=== PATIENT | male | born 1965 | race Caucasian/White ===

== ENCOUNTER 2016-06-24 13:28 | Inpatient (IN) | payer OTHER ==
[~2016-06-24] VITALS: Ht 167.6 cm; Wt 74.8 kg
[~2016-06-24 13:28] MED LIST: ENULOSE 2020 GM/30 M PO; FOLIC ACID1 M1 PO; HYDRODIURIL 2525 MG PO; KEPPRA1000 M1 PO; LISINOPRIL10 MG PO; LOPRESSOR 12.12.5 MG PO; MAG-OX 400400 MG PO; MAGNESIUM OXID400 M1 PO; MOBIC15 MG PO; MULTIVITAMINS1 EAC9 PO; PRILOSEC 20MG C20 MG PO; VITAMIN B1100 MG PO
--- NOTE | 2016-06-24 13:40 | ED PSYCHIATRIC COMPLAINT ---
History of Present Illness General Chief Complaint: Psychiatric Related Complaint Stated Complaint: BIBA FOR PSYCH EVAL Source: patient, EMS, police Exam Limitations: no limitations Vital Signs & Intake/Output Vital Signs & Intake/Output Vital Signs Date Time Temp Pulse Resp B/P Pulse O2 O2 Flow FiO2 Ox Delivery Rate 06/24 1540 106 14 111/68 06/24 1540 98.9 106 16 111/68 100 Room Air 06/24 1409 94 Room Air Room Air 06/24 1350 97.6 120 20 120/69 94 Room Air Allergies Coded Allergies: NO KNOWN ALLERGIES (07/06/15) Reconcile Medications Folic Acid 1 MG TABLET 1 TAB PO DAILY supp (Reported) Levetiracetam (Keppra) 1,000 MG TABLET 1 TAB PO BID SEIZURE (Reported) Lisinopril 10 MG TABLET 1 TAB PO DAILY HTN (Reported) Magnesium Oxide 400 MG TABLET 1 TAB PO Q24 LOW MAGNESIUM Multiple Vitamin (Multivitamins) 1 EACH TABLET 1 TAB PO DAILY NUTRITION Omeprazole 40 MG CAPSULE.DR 1 CAP PO DAILY GERD (Reported) Thiamine (Vitamin B1) 100 MG TAB 100 MG PO DAILY SUUPLEMENT Triage Nurses Notes Reviewed? yes Onset: Abrupt Timing: unknown Severity: moderate, severe Associated Symptoms: confusion, anxiety, paranoia HPI: 50 year old male arrives via EMS with PD and presents for c/o feeling like he is being watched from electrical lines in the [place]. He thought his neighbor was scratching on the window and was found wandering. He hears people also talking to him through the radio. Reports headache from monday through monday. EMS reported he was anxious, confused and sweating. Past History Travel History Traveled to [place] past 21 day No Medical History Any Pertinent Medical History? see below for history Neurological: seizure EENT: NONE Cardiovascular: hypertension Respiratory: NONE Gastrointestinal: NONE Hepatic: NONE Renal: NONE Musculoskeletal: NONE Psychiatric: NONE Endocrine: NONE Blood Disorders: NONE Cancer(s): NONE CLIENT TECHNICAL PROFESSIONAL/Reproductive: NONE History of MRSA: No History of VRE: No History of CDIFF: No Pneumonia Vaccine: 04/14/11 Surgical History Surgical History: UNKNOWN HEAD SURG Psychosocial History Who do you live with Friend Services at Home None What is your primary language Russian Family History Hx Contributory? No Review of Systems Review of Systems Constitutional: Denies: fever. EENTM: Reports: no symptoms. Respiratory: Reports: no symptoms. Cardiovascular: Denies: chest pain. GI: Denies: abdominal pain, vomiting. Genitourinary: Reports: no symptoms. Musculoskeletal: Reports: no symptoms. Skin: Reports: no symptoms. Neurological/Psychological: Reports: anxiety, confusion, emotional problems. Hematologic/Endocrine: Denies: bleeding. Immunologic/Allergic: Reports: no symptoms. All Other Systems: Reviewed and Negative Physical Exam Physical Exam General Appearance: alert, awake, anxious, moderate distress Head: atraumatic Eyes: Bilateral: PERRL, EOMI. Ears, Nose, Throat: normal pharynx, abnormal Typanic (L) Neck: normal inspection, supple, full range of motion Respiratory: normal breath sounds, chest non-tender, no respiratory distress Cardiovascular: tachycardia Gastrointestinal: soft Extremities: normal range of motion Neurological/Psychiatric: awake, alert Appearance/Memory/Insight: appropriate appearance, impaired insight, neat Behavoir/Eye Contact/Speech: normal speech Thoughts/Hallucinations: auditory hallucinations, delusions, paranoid Skin: intact, normal color, warm/dry SAD PERSONS Done? patient not suicidal Progress Differential Diagnosis: alcohol withdrawal, delerium tremens, psychosis, dehydration, BREANN, polysubstance abuse, rhabdomyolysis Plan of Care: Orders Procedure Date/time Status Add-on Test (ER Only) 06/24 1517 Active TROPONIN LEVEL 06/24 1425 Complete MAGNESIUM 06/24 1425 Complete LIPASE 06/24 1425 Complete CREATINE PHOSPHOKINASE 06/24 1425 Complete CIWA 06/24 1420 Active EKG 06/24 1408 Active ETHANOL 06/24 1351 Complete COMPREHENSIVE METABOLIC PANEL 06/24 1351 Complete CBC WITHOUT DIFFERENTIAL 06/24 1351 Complete Continuous Observation Monitor 06/24 1342 Active URINE DRUGS OF ABUSE 06/24 1342 Active ED CRISIS PSYCH CONSULT 06/24 1342 Active Current Medications Sig/Patricia Start time Last Medication Dose Stop Time Status Admin Lorazepam 2 MG ONE ONE 06/24 1645 AC (Ativan) 06/24 1646 Cyanocobalamin/ 1 BAG ONCE ONE 06/24 1545 AC Thiamine/Pyridoxine 06/24 2344 (Vitamin in I.V.) Sodium Chloride 1,000 ML (Normal Saline 0.9%) Magnesium Sulfate 1 GM ONCE ONE 06/24 1545 AC (Mag Sulfate in D5) 06/24 1944 Dextrose/Water 100 ML (D5W) Laboratory Tests 06/24/16 1425: Anion Gap 12, Estimated GFR 43 L, BUN/Creatinine Ratio 20.0, Glucose 97, Calcium 10.1, Magnesium 1.5 L, Total Bilirubin 1.8 H, AST 162 H, ALT 95 H, Alkaline Phosphatase 90, Creatine Kinase 818 H, Troponin I < 0.01, Total Protein 7.8, Albumin 4.6, Globulin 3.2, Albumin/Globulin Ratio 1.4, Lipase 88, CBC w Diff NO MAN DIFF REQ, RBC 3.68 L, MCV 101.8 H, MCH 35.4 H, RDW 14.9 H, MPV 8.6, Gran % 77.7 H, Lymphocytes % 15.9 L, Monocytes % 5.8, Eosinophils % 0.3, Basophils % 0.3, Absolute Granulocytes 5.2, Absolute Lymphocytes 1.1 L, Absolute Monocytes 0.4, Absolute Eosinophils 0, Absolute Basophils 0, PUBS MCHC 34.8, Serum Alcohol < 10.0 06/24/16 1408: Magnesium Cancelled, Lipase Cancelled 06/24/16 1407: Creatine Kinase Cancelled FLUIDS, ATIVAN, CIWA PROTOCOL. CHECK LABS, CK, MG, UTOX, ETOH. 2ND NS BOLUS ORDERED. MAGNESIUM ORDERED. (ACOSTA WATTS,MELLY) Initial ED EKG: sinus tachycardia @ 109 bpm Repeat EKG: changed Rhythm Strip: sinus tachycardia Departure Departure Time of Disposition: 1643 Disposition: STILL A PATIENT Condition: Stable Clinical Impression Primary Impression: DTs (delirium tremens) Secondary Impressions: BREANN (acute kidney injury), Hypomagnesemia, Rhabdomyolysis , Transaminitis Referrals: YOGI MCMAHON MD (PCP/Family) Departure Forms: Customer Survey General Discharge Information Admission Note Spoke With: LIS WATTS,RICHARDSON Documentation of Exam: Documentation of any treatments & extenuating circumstances including Concerns Regarding Discharge (functional status, medication knowledge or non-compliance, living conditions, etc.) that warrant an admission rather than observation: [IV FLUIDS, CIWA PROTOCOL, ATIVAN T] Critical Care Note Critical Care Note Critical Care Time: 75-104 min
[2016-06-24 14:47] LABS: ABSOLUTE BASOPHIL COUNT 0 /CUMM (0.0-0.2); ABSOLUTE EOSINOPHIL COUNT 0 /CUMM (0.0-0.7); ABSOLUTE GRANULOCYTE CT 5.2 /CUMM (1.4-6.5); ABSOLUTE LYMPH COUNT 1.1 /CUMM (1.2-3.4); ABSOLUTE MONOCYTE COUNT 0.4 /CUMM (0.10-0.60); BASOPHIL % 0.3 % (0.0-2.0); EOSINOPHIL % 0.3 % (0-5); GRANULOCYTE % 77.7 % (42.2-75.2); HEMATOCRIT 37.4 % (42-52); MEAN CORPUSCULAR HGB 35.4 PG (27.0-31.0); MEAN CORPUSCULAR HGB CONC 34.8 G/DL (33.0-37.0); MEAN CORPUSCULAR VOLUME 101.8 FL (80.0-94.0); MEAN PLATELET VOLUME 8.6 FL (7.4-10.4); RBC DISTRIBUTION WIDTH 14.9 % (11.5-14.5); RED BLOOD CELL CT 3.68 /CUMM (4.70-6.10); WHITE BLOOD CELL COUNT 6.7 /CUMM (4.8-10.8)
[2016-06-24 14:55] LABS: PLATELET COUNT 57 /CUMM (130-400)
[2016-06-24 15:40] VITALS: BP 111/68
--- NOTE | 2016-06-24 16:56 | History & Physical ---
DEMETRIO WATTS,[facility] 06/24/16 0234: General Information and HPI MD Statement: I have seen and personally examined BRENT WEATHERS and documented this H&P. The patient is a 50 year old M who presented with a patient stated chief complaint of [confusion, hallucination]. Source of Information: patient, old records Exam Limitations: confusion, poor historian, language barrier History of Present Illness: Patient is a poor historian, most of the past medical history was obtained from medical records. 48/M with PMHx of memory impairment 2/2 traumatic brain injury s/p craniotomy in 2008, seizures on levetiracetam (Keppra), DVT/PE s/p IVC filter placement, hx of ETOH abuse, and HTN, who presented via EMS that was escorted by PD because of abnormal and strange behavior. Patient claimed that the people who build his house are spying on him through an instruments they installed inside [place], earlier today they communicated with him, it wasn't clear what they are saying, for which he called the police, according to the patient soon after he called the police these people start to vita him around the building but he does not know why. He denies any suicidal or homicidal ideation. Patient denies any other current complaints. According to him he moved to this house 6 months ago, he lives with a lady but he couldn't recall her name. According to him ,He is currently smoke her one pack daily for the past 6 month however on recurrent state that he was admitted last year and he was then a smoker, he reported drinking one beer occasionally, he denies any current illegal drug abuse. Allergies/Medications Allergies: Coded Allergies: NO KNOWN ALLERGIES (07/06/15) Home Med list Folic Acid 1 MG TABLET 1 MG PO DAILY SUPPLEMENT (Reported) Levetiracetam (Keppra) 1,000 MG TABLET 1 TAB PO BID SEIZURE (Reported) Lisinopril 10 MG TABLET 1 TAB PO DAILY HTN (Reported) Magnesium Oxide 400 MG TABLET 1 TAB PO Q24 LOW MAGNESIUM Multiple Vitamin (Multivitamins) 1 EACH TABLET 1 TAB PO DAILY NUTRITION Omeprazole 40 MG CAPSULE.DR 1 CAP PO DAILY GERD (Reported) Thiamine (Vitamin B1) 100 MG TAB 100 MG PO DAILY SUUPLEMENT Past History Travel History Traveled to [place] past 21 day No Medical History Neurological: seizure, ?BRAIN INJURY EENT: NONE Cardiovascular: hypertension Respiratory: NONE Gastrointestinal: NONE Hepatic: NONE Renal: NONE Musculoskeletal: NONE Psychiatric: NONE Endocrine: NONE Blood Disorders: NONE Cancer(s): NONE POT FLUXER/Reproductive: NONE History of MRSA: No History of VRE: No History of CDIFF: No Isolation History: Standard Surgical History Surgical History: post traumatic craniotomy Past Family/Social History Psychosocial History Who Do You Live With? self Services at Home: None ETOH Use: occasional use Illicit Drug Use: denies illicit drug use Functional Ability ADLs Independent: dressing, eating, toileting, bathing. Ambulation: independent IADLs Independent: shopping, housework, finances, food prep, telephone, medication admin. Needs Assist: transportation. Review of Systems Review of Systems Constitutional: Reports: see HPI. Denies: chills, fever. Cardiovascular: Denies: chest pain, palpitations. Respiratory: Denies: short of breath. Comments Review of systems is not accurate given the patient's current confusion and altered mental status Exam & Diagnostic Data Last 24 Hrs of Vital Signs/I&O Vital Signs Date Time Temp Pulse Resp B/P Pulse O2 O2 Flow FiO2 Ox Delivery Rate 06/24 1845 98.9 106 18 112/74 100 Room Air 06/24 1747 98.6 100 18 109/79 06/24 1737 97.8 104 18 114/72 98 Room Air 06/24 1540 106 14 111/68 06/24 1540 98.9 106 16 111/68 100 Room Air 06/24 1409 94 Room Air Room Air 06/24 1350 97.6 120 20 120/69 94 Room Air Intake & Output 06/24 1600 06/24 0800 06/24 0000 Intake Total 1000 Output Total Balance 1000 Intake, IV 1000 Patient 74.843 kg Weight Physical Exam General Appearance Alert, Oriented X3, No Acute Distress Skin No Rashes HEENT Atraumatic, EOMI, Mucous Membr. moist/pink, pupils dialted and not reactive to lights Cardiovascular Regular Rate, Normal S1, Normal S2, No Murmurs Lungs Clear to Auscultation, Normal Air Movement Abdomen Normal Bowel Sounds, Soft, No Tenderness Neurological Normal Tone, Cranial Nerves 3-12 NL, looks mildly confused, impaired nose to finger test Extremities No Clubbing, No Cyanosis, No Edema, hands tremors Last 24 Hrs of Labs/Deven: Laboratory Tests 06/24/16 1638: Urine Opiates Screen < 100.00, Methadone Screen < 40, Barbiturate Screen < 60, Ur Phencyclidine Scrn < 6.00, Amphetamines Screen < 100, U Benzodiazepines Scrn < 85, Urine Cocaine Screen < 50, Urine Cannabis Screen < 5.00 06/24/16 1425: Anion Gap 12, Estimated GFR 43 L, BUN/Creatinine Ratio 20.0, Glucose 97, Calcium 10.1, Magnesium 1.5 L, Total Bilirubin 1.8 H, AST 162 H, ALT 95 H, Alkaline Phosphatase 90, Creatine Kinase 818 H, Troponin I < 0.01, Total Protein 7.8, Albumin 4.6, Globulin 3.2, Albumin/Globulin Ratio 1.4, Lipase 88, CBC w Diff NO MAN DIFF REQ, RBC 3.68 L, MCV 101.8 H, MCH 35.4 H, RDW 14.9 H, MPV 8.6, Gran % 77.7 H, Lymphocytes % 15.9 L, Monocytes % 5.8, Eosinophils % 0.3, Basophils % 0.3, Absolute Granulocytes 5.2, Absolute Lymphocytes 1.1 L, Absolute Monocytes 0.4, Absolute Eosinophils 0, Absolute Basophils 0, PUBS MCHC 34.8, Serum Alcohol < 10.0 06/24/16 1408: Magnesium Cancelled, Lipase Cancelled 06/24/16 1407: Creatine Kinase Cancelled Assessment/Plan Assessment: #Delirium. 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 CT head results was: No acute intracranial abnormality and chronic left frontal craniotomy and stable appearing encephalomalacia and gliosis within the left frontal and temporal lobes. U tox was negative. Troponin was negative. * Patient will be admitted to general med * We will order UA * Falls and seizure precaution * Continue 1:1 sitter * Psychiatric consult * We will continue Keppra for seizure prophylaxis * Avoid antipsychotic as they can trigger seizure, is deep for agitation we will use Ativan. #Acute renal failure and rhabdomylysis Patient creatinine was bound to be 1.7 on admission, CPK was found to be 800. Patient received 2 bags of 1000 normal saline bolus in the ED. * Continue normal saline at a rate of 125 mL/h * We'll recheck renal function and CPK in a.m. 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 * We would only use ALBS as he has thrombocytopenia. #HTN We tried to call pharmacy to confirm his medication, he could not get hold of the list of his medication. His blood pressure within normal limits now. * We will watch blood pressure for now * We'll avoid all nephrotoxic #History of alcohol abuse Patient has a transaminitis. normal lipase * Will be started on CIWA protocol * We will supply multivitamin, thiamine, and folic acid. * We will recheck liver function tests. contact PCP in a.m. to confirm medication Regular diet DVT prophylaxis ALBS only for now Full code As Ranked By This Provider Problem List: 1. Rhabdomyolysis 2. BREANN (acute kidney injury) 3. Thrombocytopenia Core Measures/Miscellaneous Acute Coronary Syndrome ACS Diagnosis: No Cerebrovascular Accident CVA/TIA Diagnosis: No Congestive Heart Failure CHF Diagnosis: No Venous Thromboembolism VTE Risk Factors: Acute medical illness, Age > 40, Smoking No [facility] VTE prophylaxis d/t: No contraindications No VTE Pharm Prophylaxis d/t: Medical contraindication (thrombocyopenia) VTE Diagnosis: No VTE Type: NONE VTE Confirmed by (Test): NONE Severe Sepsis Severe Sepsis Present: No Septic Shock Septic Shock Present: No Miscellaneous Documentation Attending Case Discussed With: RICHARDSON HAYS MD Primary Care Physician: KHANG MCMAHON MDTHA Patient sees these Specialists Psychiatric Level of Patient Care: General Medicine RICHARDSON HAYS 06/24/16 1726: Attending Review Statement Attending Statement Attending MD Statement: examined this patient, discuss w/resident/PA/MEDICAL IMAGING TECH, agreed w/resident/PA/MEDICAL IMAGING TECH, discussed with family, reviewed EMR data (avail), discussed with nursing, discussed with case mgmt, reviewed images Attending Assessment/Plan: 50-year-old male with history of hypertension, traumatic brain injury status post craniotomy, seizure disorder on antiepileptic drugs, DVT/pulmonary embolism status post IVC filter placement, alcoholic pancreatitis brought to the ER via EMS for abnormal behaviour. Patient is poor historian. Patient with hallucinations and pyschotic picture. Patient found to have elevated cpk and loosk dehydrated. Patient suffer acute kidney injury and recieved 2l of fluids in ER. review of symtomes negative. blood alcohol level <10. ASSESSMENT 1. Delirium; query secondary to alcohol withdrawal. 2. Rhabdomylysis 3. Acute renal failure 4. History of traumatic brain injury 5. h/o DVT/pulmonary embolism s/p IVC filter in past. 6. History of seizures on keppra Plan: -Admit to the inpatient medical service for further management, conuslt pyschiatry. -Hydrate with half normal saline at 125 mL an hour. -Place patient on a CIWA scale and dose with IV Ativan for elevated scores. -Continue Keppra for his seizure disorder, avoid haldol -monitor bmp/creatinine. trend CPK levels. check keppra level. f/u urine drug screen. -Fall precautions, c/w sitter as done in ER. -obtain medical records from PCP. BRYCE WATTS,ORA 06/24/16 0748: Resident Review Statement Resident Statement: examined this patient, discussed with health information internship, agreed with health information internship, discussed with family, reviewed EMR data (avail), discussed with nursing , reviewed images, amended to note Other Findings: 50 yo male with pmh of HTN, alcohol withdrawal, traumatic brain injury s/p craniotomy in 2008, seizure disorder on keppra, hx of DVT/PE s/p IVC filter was brought by EMS with acute delirium associated with auditory/visual hallucinations & paranoid. He saw people watching over his house and trying to break in his house, and he called [employer] police. He denies drinking alcohol. He denies chest pain, shortness of breath, abdomina pain/n/v. V/S: 97.8F MN 104 RR 18 BP 114/72 Sat 98%, On exam: alert, oriented x 2, but confused trying to get up from bed with IV lines, HEENT: EOM intact, dilated pupils with sluggish light reflex, Cardiovascular: tachycardia, normal S1/S2, no murmurs, Lungs: CTA, abomen: normal bowel sound, soft, non-tender, neurologic: motor 5/5, sensation intact, find tremors, [id number] abnormal. Ext: no LE edema/tenderness, vascular: pulses intact bilateral Labs: U tox negative, alcohol < 10, Hb/Hct 13/37.4, plt 57k, BUN/Cr 34/1.7 ( baseline 0.8). CT head: No acute intracranial abnormality. Chronic left frontal craniotomy and stable appearing encephalomalacia and gliosis within the left frontal and temporal lobes. 1. Acute delirium: possible multifactorial etiology including alcohol withdrawal , medication non-compliance (keppra), dehydration, etc. Continue close monitoring pt, IV ativan per CIWA, hold haldol/zyprexa for lowering seizure threshold for now. CT head didn't show acute abnormality. 2. BREANN secondary to rhabdomyolysis: mild rhabdomyolysis with CK 818, continue IV hydration, follow up CK level, BUN/Cr in am 3. Chronic thombocytopenia: in the setting of chronic alcohol abuse. ALPS only for DVT prophylaxis. Low plt precaution, f/u PLT in am. 4. Seizure disorder: seizure precaution, continue home dose keppra 1000mg bid, thiamine, folate 5. Transaminitis: likely secondary to alcoholic hepatitis, AST>ALT, IV hydration , f/u LFTs, last hepatitis panel was in 2014, normal. DVT ppx: ALPS, full code, pain pathway
[2016-06-24 17:47] VITALS: BP 109/79
[2016-06-24] MEDS ORDERED: PANTOPRAZOLE SO40 M1 PO (18:12)
[2016-06-24] MEDS ORDERED: OMEPRAZOLE40 M1 PO (18:13)
--- NOTE | 2016-06-24 19:42 | CT SCAN REPORT ---
CT HEAD WITHOUT CONTRAST CLINICAL INFORMATION: Acute delirium with history of traumatic brain injury status post craniotomy. COMPARISON: Head CT 09/27/2011. TECHNIQUE: Contiguous axial imaging was performed from the skull base to vertex without intravenous administration of contrast. FINDINGS: There are postoperative changes following left frontal craniotomy. There is stable appearing low-attenuation within the left frontal lobe, presumably encephalomalacia and gliosis with associated ex vacuo dilatation of the left frontal horn. Appearance is stable since 2011. There is a punctate calcification within the left frontal lobe. There is also hypoattenuation within the left temporal lobe with associated ex vacuo dilatation of the left temporal horn that also likely reflects encephalomalacia and gliosis in that remain stable. There is no new parenchymal attenuation abnormality. There is no intracranial hemorrhage, hydrocephalus, extra-axial surface collection, midline shift, or other herniation pattern. The basilar cisterns are preserved. No significant soft tissue abnormality. No acute osseous abnormality. The paranasal sinuses and the mastoid air cells are well-aerated. There is leftward deviation of the nasal septum with a leftward directed septal spur. IMPRESSION: - No acute intracranial abnormality. - Chronic left frontal craniotomy and stable appearing encephalomalacia and gliosis within the left frontal and temporal lobes.
[2016-06-24 22:49] VITALS: BP 120/70
[2016-06-25] VITALS: BP 120/70
[2016-06-25 06:30] VITALS: BP 118/74
[2016-06-25 08:13] LABS: ABSOLUTE BASOPHIL COUNT 0 /CUMM (0.0-0.2); ABSOLUTE EOSINOPHIL COUNT 0.1 /CUMM (0.0-0.7); ABSOLUTE GRANULOCYTE CT 2.1 /CUMM (1.4-6.5); ABSOLUTE LYMPH COUNT 0.8 /CUMM (1.2-3.4); ABSOLUTE MONOCYTE COUNT 0.2 /CUMM (0.10-0.60); BASOPHIL % 0.5 % (0.0-2.0); EOSINOPHIL % 1.8 % (0-5); GRANULOCYTE % 65.7 % (42.2-75.2); HEMATOCRIT 32.8 % (42-52); MEAN CORPUSCULAR HGB 35.5 PG (27.0-31.0); MEAN CORPUSCULAR HGB CONC 34.3 G/DL (33.0-37.0); MEAN CORPUSCULAR VOLUME 103.7 FL (80.0-94.0); MEAN PLATELET VOLUME 8.4 FL (7.4-10.4); RED BLOOD CELL CT 3.16 /CUMM (4.70-6.10)
[2016-06-25 08:37] LABS: PT 10.8 SEC (9.4-12.5); PTT 28 SEC (25-37)
[2016-06-25 08:41] LABS: WHITE BLOOD CELL COUNT 3.2 /CUMM (4.8-10.8)
--- NOTE | 2016-06-25 09:20 | PN- Housestaff ---
DEMETRIO WATTS,[facility] 06/25/16 0919: Subjective Follow-up For: Hallucination Acute kidney injury Elevated CPK Subjective: Febrile, hemodynamically stable, saturating well on room air. No acute overnight events reported. Patient alert and denies any current visual or auditory hallucination, however he still convinced that yesterday storys are real. She denies homicidal or suicidal ideation. Denies any current active complaint. Review of Systems Constitutional: Reports: see HPI. Objective Last 24 Hrs of Vital Signs/I&O Vital Signs Date Time Temp Pulse Resp B/P Pulse O2 O2 Flow FiO2 Ox Delivery Rate 06/25 0630 98.4 79 20 118/74 97 Room Air 06/25 0000 98.1 85 20 120/70 06/24 2249 98.1 85 20 120/70 96 Room Air 06/24 2145 98.5 18 109/57 98 Room Air 06/24 1845 98.9 106 18 112/74 100 Room Air 06/24 1747 98.6 100 18 109/79 06/24 1737 97.8 104 18 114/72 98 Room Air 06/24 1540 106 14 111/68 06/24 1540 98.9 106 16 111/68 100 Room Air 06/24 1409 94 Room Air Room Air 06/24 1350 97.6 120 20 120/69 94 Room Air Intake & Output 06/25 1600 06/25 0800 06/25 0000 Intake Total 1300 Output Total 1600 Balance -300 Intake, IV 1000 Intake, Oral 300 Number 0 Bowel Movements Output, Urine 1600 Patient 74.843 kg Weight Physical Exam General Appearance: Alert, Cooperative, No Acute Distress, mildly disoriented Skin: No Rashes HEENT: Atraumatic, PERRLA, EOMI, Mucous Membr. moist/pink Cardiovascular: Regular Rate, Normal S1, Normal S2, No Murmurs Lungs: Clear to Auscultation, Normal Air Movement Abdomen: Normal Bowel Sounds, Soft, No Tenderness Neurological: Normal Speech Extremities: No Cyanosis, No Edema Current Medications: Current Medications Sig/Patricia Start time Last Medication Dose Route Stop Time Status Admin Acetaminophen 325 MG Q8P PRN 06/24 1800 AC PO Cyanocobalamin/ 1 BAG ONCE ONE 06/24 1545 DC 06/24 Thiamine/Pyridoxine IV 06/24 2344 1653 Sodium Chloride 1,000 ML Folic Acid 1 MG DAILY 06/25 1000 DC PO Folic Acid 1 MG DAILY 06/25 1000 AC 06/25 PO 0924 Haloperidol 0 .STK-MED ONE 06/24 1819 DC .ROUTE Haloperidol 5 MG ONCE ONE 06/24 1815 DC 06/24 IM 06/24 1816 1824 Levetiracetam 1,000 MG BID 06/24 2200 AC 06/25 PO 0924 Lisinopril 10 MG DAILY 06/25 1000 CAN PO Lorazepam 0 Q1P PRN 06/24 1815 AC 06/25 IV 0125 Lorazepam 2 MG ONE ONE 06/24 1815 DC 06/24 IV 06/24 1816 1818 Lorazepam 2 MG ONCE ONE 06/24 1815 DC 06/24 PO 06/24 1816 1818 Lorazepam 0 .STK-MED ONE 06/24 181 DC .ROUTE Lorazepam 0 .STK-MED ONE 06/24 1811 DC PO Lorazepam 0 .STK-MED ONE 06/24 1747 DC .ROUTE Lorazepam 2 MG ONE ONE 06/24 1745 DC 06/24 IV 06/24 1746 1747 Lorazepam 2 MG ONE ONE 06/24 1645 DC 06/24 IV 06/24 1646 1653 Lorazepam 0 .STK-MED ONE 06/24 1634 DC .ROUTE Lorazepam 0 .STK-MED ONE 06/24 1433 DC .ROUTE Lorazepam 2 MG ONE ONE 06/24 1430 DC 06/24 IV 06/24 1431 1436 Magnesium Oxide 400 MG Q24 06/25 1000 DC PO Magnesium Oxide 400 MG DAILY 06/25 1000 AC 06/25 PO 0925 Magnesium Sulfate 1 GM ONCE ONE 06/24 1545 DC 06/24 Dextrose/Water 100 ML IV 06/24 1944 1653 Morphine Sulfate 2 MG Q4P PRN 06/24 1800 AC IV Multivitamins 1 TAB DAILY 06/25 1000 AC 06/25 Therapeutic PO 0924 Nicotine 21 MG AT BEDTIME 06/25 2200 AC TOP Nicotine 21 MG DAILY 06/24 1831 DC 06/24 TOP 2250 Omeprazole 40 MG DAILY AC 06/25 0700 AC 06/25 PO 0610 Oxycodone HCl 5 MG Q6P PRN 06/24 1800 AC PO Sodium Chloride 1,000 ML Q8H 06/24 1815 AC 06/25 IV 0747 Sodium Chloride 1,000 ML BOLUS ONE 06/24 1430 DC 06/24 IV 06/24 1529 1521 Sodium Chloride 1,000 ML BOLUS ONE 06/24 1415 DC 06/24 IV 06/24 1514 1436 Thiamine HCl 100 MG DAILY 06/25 1000 AC 06/25 PO 0924 Thiamine HCl 0 .STK-MED ONE 06/24 1642 DC .ROUTE Last 24 Hrs of Lab/Deven Results Last 24 Hrs of Labs/Mics: Laboratory Tests 06/25/16 0820: Levetiracetam Pending 06/25/16 0710: Anion Gap 8, Estimated GFR > 60, BUN/Creatinine Ratio 19.0, Creatine Kinase 343 H, Vitamin B12 Pending, Folate Pending, PT 10.8, INR 1.03, APTT 28, CBC w Diff NO MAN DIFF REQ, RBC 3.16 L, MCV 103.7 H, MCH 35.5 H, RDW 15.0 H, MPV 8.4, Gran % 65.7, Lymphocytes % 24.7, Monocytes % 7.3, Eosinophils % 1.8, Basophils % 0.5, Absolute Granulocytes 2.1, Absolute Lymphocytes 0.8 L, Absolute Monocytes 0.2, Absolute Eosinophils 0.1, Absolute Basophils 0, PUBS MCHC 34.3 06/25/16 0005: Urine Color YEL, Urine Clarity CLEAR, Urine pH 6.5, Ur Specific [place] <= 1.005 , Urine Protein NEG, Urine Ketones NEG, Urine Nitrite NEG, Urine Bilirubin NEG, Urine Urobilinogen 1.0, Ur Leukocyte Esterase NEG, Ur Microscopic EXAM NOT REQUIRED, Urine Hemoglobin NEG, Urine Glucose NEG 06/24/16 1638: Urine Opiates Screen < 100.00, Methadone Screen < 40, Barbiturate Screen < 60, Ur Phencyclidine Scrn < 6.00, Amphetamines Screen < 100, U Benzodiazepines Scrn < 85, Urine Cocaine Screen < 50, Urine Cannabis Screen < 5.00 06/24/16 1425: Anion Gap 12, Estimated GFR 43 L, BUN/Creatinine Ratio 20.0, Glucose 97, Calcium 10.1, Magnesium 1.5 L, Total Bilirubin 1.8 H, AST 162 H, ALT 95 H, Alkaline Phosphatase 90, Creatine Kinase 818 H, Troponin I < 0.01, Total Protein 7.8, Albumin 4.6, Globulin 3.2, Albumin/Globulin Ratio 1.4, Lipase 88, CBC w Diff NO MAN DIFF REQ, RBC 3.68 L, MCV 101.8 H, MCH 35.4 H, RDW 14.9 H, MPV 8.6, Gran % 77.7 H, Lymphocytes % 15.9 L, Monocytes % 5.8, Eosinophils % 0.3, Basophils % 0.3, Absolute Granulocytes 5.2, Absolute Lymphocytes 1.1 L, Absolute Monocytes 0.4, Absolute Eosinophils 0, Absolute Basophils 0, PUBS MCHC 34.8, Serum Alcohol < 10.0 06/24/16 1408: Magnesium Cancelled, Lipase Cancelled 06/24/16 1407: Creatine Kinase Cancelled Assessment/Plan Assessment: #Delirium. 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 CT head results was: No acute intracranial abnormality and chronic left frontal craniotomy and stable appearing encephalomalacia and gliosis within the left frontal and temporal lobes. U tox was negative. Troponin was negative. Her and was negative for UTI * Falls and seizure precaution * Continue 1:1 sitter * Psychiatric consult placed * Continue Keppra for seizure prophylaxis * Avoid antipsychotic as they can trigger seizure, is deep for agitation we will use Ativan. #Acute renal failure and rhabdomylysis On admission creatinine was 1.7 and CPK was 800. Patient received 2 bags of 1000 normal saline bolus in the ED. he was continued on normal saline at rate of 125 ml/h. this morning creatinine is back to normal and CPKs down to 300. * DC fluid and encourage oral intake * We'll recheck renal function and CPK in a.m. #Macrocytic anemia with pancytopenia Most likely secondary to alcohol abuse. Mildly dropped since yesterday most likely hemodilutional effect. 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 * We would only use ALBS as he has thrombocytopenia. #HTN We tried to call pharmacy to confirm his medication, he could not get hold of the list of his medication. His blood pressure within normal limits now. * We will watch blood pressure for now * We'll avoid all nephrotoxic #History of alcohol abuse Patient has a transaminitis. normal lipase * Will be started on CIWA protocol * We will supply multivitamin, thiamine, and folic acid. * We will recheck liver function tests. contact PCP in a.m. to confirm medication Regular diet DVT prophylaxis ALBS only for now Full code Problem List: 1. Craniotomy 2. ETOH ABUSE 3. Transaminitis 4. Acute kidney injury 5. Thrombocytopenia 6. Seizures 7. Rhabdomyolysis Pain Ratin Pain Location: na Pain Goal: Remain pain free Pain Plan: see A&P Tomorrow's Labs & Rationales: cbc, bep and lft VIJAYA WATTS,RONALDOSONYAJacqueline 06/25/16 1026: Attending MD Review Statement Attending Statement Attending MD Statement: examined this patient, discuss w/resident/PA/CHIEF DEPUTY SHERIFF, agreed w/resident/PA/CHIEF DEPUTY SHERIFF, reviewed EMR data (avail), discussed with nursing, reviewed images, amended to note Attending Assessment/Plan: Patient seen and examined. Sitting up comfortably in bed not in any acute distress. He is afebrile and hemodynamically stable. He is alert and oriented his conversations are being monitored and the people are trying to kill him. It is noted that he had similar admission last year for acute delirium however that point he was managed for alcohol withdrawal syndrome. He does not appear to be withdrawing from alcohol use currently. His CIWA was elevated last night however mainly due to anxiety and agitation. His score has improved this morning. On examination he has no focal neurologic deficits. He is ambulating freely. His urine drug screen was negative on presentation. He did have evidence of acute kidney injury of presentation however with hydration this has resolved. Problems: 1. Delirium with paranoid thinking. This is iofn the setting history of traumatic brain injury. 2. History of alcohol abuse. 3. History of seizure disorder. 4. History of esophagitis and erosive gastritis. Plan: -Continue CIWA protocol for now. Obtain psychiatric consult. -Follow-up with next of kin to obtain patient's true baseline mental status. -Continue PPI therapy. Patient should follow-up with the GI service As an Outpatient for Repeat EGD As Recommended followig his EGD in January. -Pharmacy records show that his meds were last refilled in October. He likely is not compliant -Continue Keppra. Hold lisinopril for now as blood pressure is acceptable off meds. Continue PPI. -Pancytopenia is chronic and likely due to alcohol use. Acute drop overnight is likely due to hemodilution. Repeat labs in am.
[2016-06-25 09:52] LABS: PLATELET COUNT 40 /CUMM (130-400)
[2016-06-25 14:00] VITALS: BP 132/80
--- NOTE | 2016-06-25 18:35 | Cons- Psychiatry ---
Psychiatric Consult Date of Consult: 06/25/16 Reason for Consult: Altered mental status Allergies: Coded Allergies: NO KNOWN ALLERGIES (07/06/15) Past History Past Medical History Neurological: seizure, ?BRAIN INJURY EENT: NONE Cardiovascular: hypertension Respiratory: NONE Gastrointestinal: NONE Hepatic: NONE Renal: NONE Musculoskeletal: NONE Psychiatric: NONE Endocrine: NONE Blood Disorders: DVT, PE, IVC FILTER Cancer(s): NONE PLANT AND MAINTENANCE TECHNICIAN/Reproductive: NONE Past Surgical History Surgical History: post traumatic craniotomy Assessment/Plan Impression: 50-year-old , unemployed, domiciled [place] man living in [place] where he is renting a room, significant long-standing chronic alcohol use history as well as traumatic brain injury status post craniotomy 8 years ago in on chronic antiepileptic medication presented to [facility] yesterday evening at the behest of local police after he called them twice reporting he heard voices of and saw individuals who are trying to harm him that by all reports seem to be of delusional nature. Psychiatry was consulted for further management recommendations. On interview today Mr. Callahan is pleasant and cooperative. He is alert, oriented to name, but cannot recall the name of the current hospital, the town in which it is situated, or today's date. He has a difficult time initially recalling the circumstances of his admission. However upon prompting, he is able to tell me that about 3 days ago he abruptly stopped drinking alcohol. He was unable to clearly describe what his motivation was for completely stopping drinking, but does report that he was drinking prior to this and was extremely guarded as to exactly how much he was drinking. He does admit to drinking both liquor and beer. He reports that over the past few days he believes he has heard the voice of someone being projected through his phone, "as clear as a radio "making threatening statements to him. He also reports visually observing these individuals. This led him to call the [place] police who came to his home yesterday, inspected the premises, left, and the patient called them again, after which it is my understanding that he was brought to the hospital for evaluation. Now on the internal medicine service, status post IV hydration as well as Ativan, he continues to report that he believes the threatening voices and images were real, but denies seeing or hearing any of this while inpatient currently. He denies any other psychiatric symptoms including SI or HI, depressive symptoms, symptoms of anali, other psychotic symptoms, anxious symptoms or posttraumatic stress symptoms. He denies any formal past psychiatric history, denies any psychiatric treatment, hospitalizations, suicide attempts, violence, psychotropics. Long-standing history of alcohol use disorder with previous, complicated withdrawals. Past medical history most notable for traumatic brain injury suffered a years ago status post craniotomy. +post-traumatic epilepsy He has chronically been on antiepileptics since this event. DVT/PE s/p IVC filter placement, hx of ETOH abuse, and HTN Outpatient medications: Unable to recall the names or doses of any of these medications, or even where prescribed. FH: unknown SH: Reports that 6 months ago he was from his of many years. Moved out of their home and is now renting a room from a woman in [place]. 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 Mental status exam: Adequately groomed man appears older than stated age, mild intention tremor, cooperative with interview, intense eye contact, speech was accented, halting though unclear as to whether this is due to [place] Island[place] as a second language, otherwise within normal limits. Mood was "fine", affect was constricted, mildly guarded, non-labile, congruent. Thought process was mildly impoverished. Thought content within normal limits. Denies SI or HI. Perceptual disturbances as above: Reports recent history of auditory and visual hallucinations that he denies having currently but continues to believe that the previous hallucinations were real. Cognition: Alert, oriented to name only cannot recall the name of the hospital the town which is located or today's date. He was able to perform simple mathematics calculations. Recent and remote memory is impaired. Insight and judgment are poor. Laboratory results: CBC notable for white count of 3.2, hemoglobin of 11.2 and platelets of 40. His MCV was elevated at 104. Basic metabolic panel was within normal limits. INR was 1.03, with elevated total bilirubin of 1.5, AST of 124, ALT of 88, CK of 343. B12 and folate were within normal limits as was his urinalysis. Imaging: FINDINGS: There are postoperative changes following left frontal craniotomy. There is stable appearing low-attenuation within the left frontal lobe, presumably encephalomalacia and gliosis with associated ex vacuo dilatation of the left frontal horn. Appearance is stable since 2011. There is a punctate calcification within the left frontal lobe. There is also hypoattenuation within the left temporal lobe with associated ex vacuo dilatation of the left temporal horn that also likely reflects encephalomalacia and gliosis in that remain stable. There is no new parenchymal attenuation abnormality. There is no intracranial hemorrhage, hydrocephalus, extra-axial surface collection, midline shift, or other herniation pattern. The basilar cisterns are preserved. No significant soft tissue abnormality. No acute osseous abnormality. The paranasal sinuses and the mastoid air cells are well-aerated. There is leftward deviation of the nasal septum with a leftward directed septal spur. IMPRESSION: - No acute intracranial abnormality. - Chronic left frontal craniotomy and stable appearing encephalomalacia and gliosis within the left frontal and temporal lobes. A: 50-year-old man with history of chronic alcohol use disorder as well as TBI status post craniotomy with post traumatic epilepsy on chronic antiepileptics presenting with auditory and visual hallucinations localized to his home resulting in hospitalization for repeatedly calling the police. This patient's presentation is likely multifactorial. However, we can discern is that his laboratory results are highly consistent with an individual who consistently abuses alcohol including a significantly elevated MCV and depressed bone marrow as well as liver damage. The timeline might be suggestive that he discontinued drinking a few days ago, developed alcohol withdrawal hallucinosis and/or delirium, which has now improved upon benzodiazepine administration in the hospital. It is likely that the patient's history of TBI and chronic cognitive deficits also complicate the picture. Would also keep on the differential diagnosis subclinical seizures. Recommendations: -Continue treatment for presumed late-phase alcohol withdrawal delirium including IV benzodiazepines as needed, though would be mindful that benzodiazepines can actually worsen delirium and people whose brain is injured -Would recommend high-dose IV thiamine protocol 500 mg IV 3 times a day for a few days and determine whether this improves his cognitive function. -As he was in good behavioral control and denies any current hallucinations would hold off on any neuroleptic medications currently. -Continue to monitor for improvement in mental status. It is unknown, however extremely important, to know what his baseline mental status is. This can be hopefully determine from the woman with whom he lives or perhaps his ex-. -If he does not continue to improve cognitively, would suggest neurology consults given his history of significant brain injury and his lack of history of known psychiatric conditions. -Psychiatry consult service will follow up on Monday -Thank you for this consult.
[2016-06-25 22:26] VITALS: BP 126/84
[2016-06-26] VITALS (8 sets, daily range): BP systolic 13–146; BP diastolic 70–92
[2016-06-26 08:42] LABS: ABSOLUTE BASOPHIL COUNT 0 /CUMM (0.0-0.2); ABSOLUTE EOSINOPHIL COUNT 0.1 /CUMM (0.0-0.7); ABSOLUTE GRANULOCYTE CT 2.6 /CUMM (1.4-6.5); ABSOLUTE LYMPH COUNT 0.8 /CUMM (1.2-3.4); ABSOLUTE MONOCYTE COUNT 0.3 /CUMM (0.10-0.60); BASOPHIL % 0.3 % (0.0-2.0); EOSINOPHIL % 1.4 % (0-5); HEMATOCRIT 33.9 % (42-52); MEAN CORPUSCULAR HGB 35.5 PG (27.0-31.0); MEAN CORPUSCULAR VOLUME 104.2 FL (80.0-94.0); MEAN PLATELET VOLUME 8.4 FL (7.4-10.4); RBC DISTRIBUTION WIDTH 14.9 % (11.5-14.5); RED BLOOD CELL CT 3.26 /CUMM (4.70-6.10); WHITE BLOOD CELL COUNT 3.8 /CUMM (4.8-10.8)
--- NOTE | 2016-06-26 08:47 | PN- Housestaff ---
HAILE WATTS,[place] 06/26/16 0847: Subjective Follow-up For: Acute Delirium with psychotic feautures Subjective: Patient is seen and examined at bedside. He reports that he slept well and denies any nightmares, increased anxiety, hallucination. When asked whether he still hears people or think that people are spying on him he denies it. Patient appears alert and oriented 3. No acute overnight event reported by nursing staff. Review of Systems Constitutional: Reports: no symptoms. Objective Last 24 Hrs of Vital Signs/I&O Vital Signs Date Time Temp Pulse Resp B/P Pulse O2 O2 Flow FiO2 Ox Delivery Rate 06/26 1200 97.9 79 15 140/90 06/26 0800 98.3 78 16 130/92 06/26 0718 98.3 78 20 130/92 97 Room Air 06/25 2226 98.5 88 20 126/84 96 Room Air 06/25 1400 98.1 94 20 132/80 06/25 1400 98.1 94 20 132/80 96 Room Air Intake & Output 06/26 1600 06/26 0800 06/26 0000 Intake Total 1100 480 Output Total 1050 Balance 1100 -570 Intake, IV 1000 Intake, Oral 100 480 Output, Urine 1050 Physical Exam General Appearance: Alert, Oriented X3, Cooperative Skin: No Significant Lesion Cardiovascular: Regular Rate, Normal S1, Normal S2, No Murmurs, Gallops, Rubs Lungs: Clear to Auscultation, Normal Air Movement Abdomen: Normal Bowel Sounds, No Hepatospenomegaly Neurological: Normal Tone, Sensation Intact Assessment/Plan Assessment: #Delirium. 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 CT head results was: No acute intracranial abnormality and chronic left frontal craniotomy and stable appearing encephalomalacia and gliosis within the left frontal and temporal lobes. U tox was negative. Troponin was negative. Her and was negative for UTI * Falls and seizure precaution * Continue 1:1 sitter * Continue Keppra for seizure prophylaxis * Avoid antipsychotic as they can trigger seizure, is deep for agitation we will use Ativan. * Will contact family to assess patient's baseline #Acute renal failure and rhabdomylysis On admission creatinine was 1.7 and CPK was 800. Patient received 2 bags of 1000 normal saline bolus in the ED. he was continued on normal saline at rate of 125 ml/h. this morning creatinine is back to normal and CPKs down to 300. * Continue fluids for now. #Macrocytic anemia with pancytopenia Most likely secondary to alcohol abuse. Mildly dropped since yesterday most likely hemodilutional effect. 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 * We would only use ALBS as he has thrombocytopenia. #HTN We tried to call pharmacy to confirm his medication, he could not get hold of the list of his medication. His blood pressure within normal limits now. * We will watch blood pressure for now * We'll avoid all nephrotoxic #History of alcohol abuse Patient has a transaminitis. normal lipase * Will be started on CIWA protocol * We will supply multivitamin, thiamine, and folic acid. * We will recheck liver function tests. contact PCP in a.m. to confirm medication Regular diet DVT prophylaxis ALBS only for now Full code Problem List: 1. Acute delirium Pain Ratin Pain Location: none Pain Goal: Pain 4 or less Pain Plan: per pain pathway Tomorrow's Labs & Rationales: cbc BEP VIJAYA WATTS,NELL 06/26/16 1159: Attending MD Review Statement Attending Statement Attending MD Statement: examined this patient, discuss w/resident/PA/SURGICAL SCRUB TECHNOLOGIST, agreed w/resident/PA/SURGICAL SCRUB TECHNOLOGIST, reviewed EMR data (avail), discussed with nursing, amended to note Attending Assessment/Plan: Patient seen and examined. Mental status is much better this morning. He reports that he intentionally called the police on 2 occasions yesterday as his knee was kept coming to his house. He was unable to clearly explain why he was concerned about his neighbors coming to his house. He reports that he is living with a lady coffee daily and that he rents his living space from her. When I questioned him about concerns of people trying to kill him he denied any knowledge of that statement. It appears that his acute delirium is improving. The GI still unknown. He very adamantly states that he is not a heavy drinker. He states that within the past week he has drank only one bottle of beer. Recommendations: -Continue IV hydration. Continue CIWA protocol. -He did receive more doses the day prior following his acute presentation. He is ON a standing dose of Ativan due to concern for worsening delirium in a patient existing brain injury -Follow-up with repeat psychiatric evaluation tomorrow morning after which decision regarding disposition can be made. -Follow-up with his roommate/next of kin regarding his baseline mental status. -He has only be continued on Keppra from his home regimen due to concerns of seizures. It appears that he has not been taking any medications at home.
[2016-06-26 09:47] LABS: PLATELET COUNT 41 /CUMM (130-400)
[2016-06-27 02:00] VITALS: BP 140/90
[2016-06-27 06:00] VITALS: BP 134/82
[2016-06-27 06:24] VITALS: BP 134/82
--- NOTE | 2016-06-27 07:31 | PN- Housestaff ---
[facility] 06/27[facility]16 0731: Subjective Follow-up For: Acute kidney injury Elevated CPK Delirium Alcohol detox Pancytopenia Subjective: Afebrile, hemodynamically stable, saturating well on room air. No acute overnight events reported. He is scoring 0 on CIWA since June 26 morning. Patient alert and oriented X3, He denies any current visual or auditory hallucination, or any other symptoms or signs suggestive of alcohol withdrawal. He is stable and will most likely be discharged if cleared by psych. Review of Systems Constitutional: Reports: no symptoms. Objective Last 24 Hrs of Vital Signs/I&O Vital Signs Date Time Temp Pulse Resp B/P Pulse O2 O2 Flow FiO2 Ox Delivery Rate 06/27 0920 97.6 79 20 138/80 98 Room Air 06/27 0624 98.1 75 20 134/82 98 Room Air 06/27 0600 98.1 75 20 134/82 06/27 0200 98.5 71 20 140/90 06/26 2200 97.8 80 20 146/90 06/26 2153 97.8 80 20 146/90 97 Room Air 06/26 2000 98.7 88 20 134/70 06/26 2000 98.7 88 20 134/70 97 Room Air 06/26 1600 98.4 92 20 130/80 06/26 1501 98.4 92 20 130/80 98 06/26 1200 97.9 79 15 140/90 Intake & Output 06/27 1600 06/27 0800 06/27 0000 Intake Total 1000 450 Output Total Balance 1000 450 Intake, IV 1000 Intake, Oral 0 450 Number 0 Bowel Movements Physical Exam General Appearance: Alert, Oriented X3, Cooperative, No Acute Distress Cardiovascular: Regular Rate, Normal S1, Normal S2, No Murmurs Lungs: Clear to Auscultation, Normal Air Movement Abdomen: Normal Bowel Sounds, Soft, No Tenderness Neurological: Normal Speech, Strength at 5/5 X4 Ext Extremities: No Clubbing, No Cyanosis, No Edema Current Medications: Current Medications Sig/Patricia Start time Last Medication Dose Route Stop Time Status Admin Acetaminophen 325 MG Q8P PRN 06/24 1800 AC PO Folic Acid 1 MG DAILY 06/25 1000 AC 06/27 PO 0823 Levetiracetam 1,000 MG BID 06/24 2200 AC 06/27 PO 0823 Lorazepam 0 Q1P PRN 06/24 1815 AC 06/25 IV 0125 Magnesium Oxide 400 MG DAILY 06/25 1000 AC 06/27 PO 0823 Morphine Sulfate 2 MG Q4P PRN 06/24 1800 AC IV Multivitamins 1 TAB DAILY 06/25 1000 AC 06/27 Therapeutic PO 0823 Nicotine 21 MG AT BEDTIME 06/25 2200 AC 06/26 TOP 2152 Omeprazole 40 MG DAILY AC 06/25 0700 AC 06/27 PO 0600 Oxycodone HCl 5 MG Q6P PRN 06/24 1800 AC PO Sodium Chloride 1,000 ML Q8H 06/26 1245 AC 06/27 IV 0200 Thiamine HCl 500 MG TID 06/25 2300 AC 06/27 Sodium Chloride 100 ML IV 06/28 1704 0823 Thiamine HCl 100 MG DAILY 06/25 1000 AC 06/27 PO 0823 Last 24 Hrs of Lab/Deven Results Last 24 Hrs of Labs/Mics: Laboratory Tests 06/27/16 0640: Anion Gap 9, Estimated GFR > 60, BUN/Creatinine Ratio 16.0 Assessment/Plan Assessment: #Delirium. 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 CT head results was: No acute intracranial abnormality and chronic left frontal craniotomy and stable appearing encephalomalacia and gliosis within the left frontal and temporal lobes. U tox was negative. Troponin was negative. No UTI on UA. Most likely his presentation is multifactorial, given history of brain trauma, seizure, and alcohol abuse. This morning patient shows significant improvement comparing to the admission date. He is stable and most likely will be discharge if he got cleared by psych. * Falls and seizure precaution * DC 1:1 sitter * Continue Keppra for seizure prophylaxis * Avoid antipsychotic as they can trigger seizure, is deep for agitation we will use Ativan. * Will contact family to assess patient's baseline * #Acute renal failure and rhabdomylysis On admission creatinine was 1.7 and CPK was 800. Patient received 2 bags of 1000 normal saline bolus in the ED. he was continued on normal saline at rate of 125 ml/h. his acute kidney injury and elevated CPK resolved * NTD #Macrocytic anemia with pancytopenia Most likely secondary to alcohol abuse.B12 and folic acid normal. 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 * We would only use ALBS as he has thrombocytopenia. #HTN We tried to call pharmacy to confirm his medication, he could not get hold of the list of his medication. His blood pressure within normal limits now. * We will watch blood pressure for now * We'll avoid all nephrotoxic #History of alcohol abuse Patient has a transaminitis. normal lipase. He is been scoring 0 on CIWA since June 26 AM * Continue multivitamin, thiamine, and folic acid. Regular diet DVT prophylaxis ALBS only for now Full code Problem List: 1. Acute delirium 2. BREANN (acute kidney injury) 3. Alcohol withdrawal Pain Ratin Pain Location: na Pain Goal: Remain pain free Pain Plan: see A&P Tomorrow's Labs & Rationales: CBC, if he did not get discharged layer today. RICHARDSON HAYS 06/27/16 1125: Attending MD Review Statement Attending Statement Attending MD Statement: examined this patient, discuss w/resident/PA/SENIOR TREASURY ANALYST, agreed w/resident/PA/SENIOR TREASURY ANALYST, discussed with family, reviewed EMR data (avail), discussed with nursing, discussed with case mgmt, reviewed images Attending Assessment/Plan: ASSESSMENT 1. Delirium; query secondary to alcohol withdrawal. 2. Rhabdomylysis improved 3. Acute renal failure resolved 4. History of traumatic brain injury 5. h/o DVT/pulmonary embolism s/p IVC filter in past. 6. History of seizures on keppra -stop IV hydration. patient tolerating PO -f/u pysch and d/c planning, -continue on Keppra from his home regimen due to concerns of seizures. encourage compliance. -d/c safe discharge. case management on board.
[2016-06-27 09:20] VITALS: BP 138/80
--- NOTE | 2016-06-27 11:13 | Patient Discharge Instructions ---
Discharge Instructions General Discharge Information You were seen/treated for: Alcohol withdrawal Acute kidney injury Rhabdomyolysis Special Instructions: Please follow-up with your primary care doctor within 1 week of discharge. Please follow-up with psych servse as an outpatient within 1 week of discharge Diet Continue normal diet: Yes Recommended Diet: Regular Activity Full Activity/No Limits: Yes Activity Self Limited: Yes Acute Coronary Syndrome Inclusion Criteria At DC or during hospital stay patient has or had the following: ACS DIAGNOSIS No Discharge Core Measures Meds if any: Prescribed or Continued at Discharge Meds if any: NOT Prescribed or Continued at Discharge Congestive Heart Failure Inclusion Criteria At DC or during hospital stay patient has or had the following: CHF DIAGNOSIS No Discharge Core Measures Meds if any: Prescribed or Continued at Discharge Meds if any: NOT Prescribed or Continued at Discharge Cerebrovascular accident Inclusion Criteria At DC or during hospital stay patient has or had the following: CVA/TIA Diagnosis No Discharge Core Measures Meds if any: Prescribed or Continued at Discharge Meds if any: NOT Prescribed or Continued at Discharge Venous thromboembolism Inclusion Criteria VTE Diagnosis No VTE Type NONE VTE Confirmed by (Test) NONE Discharge Core Measures - Per Current guidelines, there needs to be overlap - treatment for the first 5 days of Warfarin therapy. - If discharged on Warfarin prior to 5 days of - overlap therapy, the patient will need to be - assessed for post discharge needs including - *Post discharge parental anticoagulation - *Warfarin and/or parental anticoagulation education - *Follow up date to check INR post discharge At least 5 days overlap therapy as Inpatient No Meds if any: Prescribed or Continued at Discharge Note: Overlap Therapy is Warfarin and Anticoagulant Meds if any: NOT Prescribed or Continued at Discharge
--- NOTE | 2016-06-27 13:40 | PN- Psychiatry ---
Assessment/Plan Impression: The patient's stated roadblock to follow up with his neurologist or PCP, and the reason he says he cannot come to IOP or OPS is lack of transportation. He would benefit from assistance with arranging medical transportation. I left the patient contact information for Outpatient Psychiatry. He feels that his male neighbors, one on either side of the house where he rents a room, were sitting in their trucks and talking about him. This occurred when Tim let the dog out of his house; he then brought the dog back in the house after a few minutes, per his report. He reports that he has not been drinking vodka, "I don't have the money for that." He reports buying a six pack of beer the day before he came to the hospital. VS 06/27/16 0920: 130/80, 79, 97.6, 20RR. 98% RA CIWA 0800: 8-1-2-7-8-9-0-0-0-1-0-0 Lorazepam taper: None since a PRN dose 0125 on 06/25/16 He is oppositional to aftercare for alcohol use disorder. Suggestion: 1. The patient is not suicidal, homicidal, delirious, nor psychotic. We would like to verify that he is returning to a safe home situation, and talk with his landlady, Maya, but he is refusing permission. We have called and left a message for Maya, which will give her an opportunity to voice any concerns. We are expecting a return call. We understand that Alesha Diaz LCSW, had received a call from her this morning, and instructed her to call 911 if the patient exhibits bizarre behavior. The patient is clear to leave from a psychiatric viewpoint. 2. The patient states that he has no transportation to come to Outpatient psychiatry. We understand that he has a transportation benefit through his insurance, and he may need a review in how to arrange rides to his providers. 3. Please encourage the patient to follow-up with his providers. He is followed for primary care at [facility], Dr. Kiara Kim. 4. Please encourage the patient to call and make an appointment with us at Outpatient psychiatry. I have provided him with a card with contact information. Thank-you for asking us to participate in Tim's care. We understand that the patient wishes to leave, and there is not a medical or psychiatric reason to hold him. Alfredito Lang APRN, Pager [phone] Subjective Subjective: A+OX3 Denies auditory or visual hallucinations, and presents no tabby delusions. Denies suicidal or homicidal ideation. He denies memory problems. Lives with his friend Kevin's , Maya and her daughter. He complains that she wants him to do work around the house, but not pay him. He states that he pays her rent, "I have money." He reports that neighbors on either side of his house talk about him. He states that he is able to walk away from an argument with people, "Once, twice, but not forever." Insight and judgment are moderate to good. Objective Last 24 Hrs of Vital Signs/I&O Vital Signs Date Time Temp Pulse Resp B/P Pulse O2 O2 Flow FiO2 Ox Delivery Rate 06/27 1406 98.5 91 18 130/80 97 Room Air 06/27 0920 97.6 79 20 138/80 98 Room Air 06/27 0624 98.1 75 20 134/82 98 Room Air 06/27 0600 98.1 75 20 134/82 06/27 0200 98.5 71 20 140/90 06/26 2200 97.8 80 20 146/90 06/26 2153 97.8 80 20 146/90 97 Room Air 06/27 1999 98.7 88 20 134/70 06/27 1999 98.7 88 20 134/70 97 Room Air Intake & Output 06/27 1600 06/27 0800 06/27 0000 Intake Total 1300 1000 450 Output Total Balance 1300 1000 450 Intake, IV 500 1000 Intake, Oral 800 0 450 Number 0 Bowel Movements Current Medications: Current Medications Sig/Patricia Start time Last Medication Dose Route Stop Time Status Admin Acetaminophen 325 MG Q8P PRN 06/24 1800 AC PO Folic Acid 1 MG DAILY 06/25 1000 AC 06/27 PO 0823 Levetiracetam 1,000 MG BID 06/24 2200 AC 06/27 PO 0823 Lorazepam 0 Q1P PRN 06/24 1815 AC 06/25 IV 0125 Magnesium Oxide 400 MG DAILY 06/25 1000 AC 06/27 PO 0823 Morphine Sulfate 2 MG Q4P PRN 06/24 1800 AC IV Multivitamins 1 TAB DAILY 06/25 1000 AC 06/27 Therapeutic PO 0823 Nicotine 21 MG AT BEDTIME 06/25 2200 AC 06/26 TOP 2152 Omeprazole 40 MG DAILY AC 06/25 0700 AC 06/27 PO 06 Oxycodone HCl 5 MG Q6P PRN 06/24 1800 AC PO Sodium Chloride 1,000 ML Q8H 06/26 1245 DC 06/27 IV 0200 Thiamine HCl 500 MG TID 06/25 2300 AC 06/27 Sodium Chloride 100 ML IV 06/28 1704 0823 Thiamine HCl 100 MG DAILY 06/25 1000 AC 06/27 PO 0823 Results Last 24 Hrs of Labs/Mics: Laboratory Tests 06/27 0640 Chemistry Sodium (137 - 145 mmol/L) 138 Potassium (3.5 - 5.1 mmol/L) 3.8 Chloride (98 - 107 mmol/L) 103 Carbon Dioxide (22 - 30 mmol/L) 25 Anion Gap (5 - 16) 9 BUN (9 - 20 mg/dL) 16 Creatinine (0.7 - 1.2 mg/dL) 1.0 Estimated GFR (>60 ml/min) > 60 BUN/Creatinine Ratio (7 - 25 %) 16.0
[2016-06-27 14:06] VITALS: BP 130/80
--- NOTE | 2016-06-27 16:33 | Discharge Summary ---
See Addendum Visit Information Visit Dates Admission Date: 06/24/16 Discharge Date: 06/27/16 Hospital Course Course Attending Physician: LIS WATTS,RICHARDSON Primary Care Physician: SALOME WATTS,[facility] Course: 48/M with PMHx of memory impairment 2/2 traumatic brain injury s/p craniotomy in 2008, seizures on levetiracetam (Keppra), DVT/PE s/p IVC filter placement, hx of ETOH abuse, and HTN, who presented via EMS that was escorted by PD because of abnormal and strange behavior. #Delirium. 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 CT head results was; No acute intracranial abnormality and chronic left frontal craniotomy and stable appearing encephalomalacia and gliosis within the left frontal and temporal lobes. U tox was negative. Troponin was negative. No UTI on UA. Most likely his presentation is multifactorial, given history of brain trauma, seizure, and alcohol abuse. Patient was placed on falls, seizure precaution, and 1:1 sitter, Continued on Keppra for seizure prophylaxis, we avoid antipsychotic as they can trigger seizure, for agitation we used Ativan as needed. On discharge patient was instructed to follow with his PCP and psychiatric service. #Acute renal failure and rhabdomylysis On admission creatinine was 1.7 and CPK was 800. Patient received 2 bags of 1000 normal saline bolus in the ED. he was continued on normal saline at rate of 125 ml/h through which his acute kidney injury and elevated CPK resolved #Macrocytic anemia with pancytopenia Most likely secondary to alcohol abuse.B12 and folic acid normal. Patient instructed to follow with his PCP post discharge #History of traumatic brain injury and history of seizure CT did not show any acute pathology. 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 * We used ALBS only as he has thrombocytopenia. #History of alcohol abuse Visualized started on Ativan as per [facility] protocol. He was tapered tolerated. We continue multivitamin, thiamine, and folic acid. She was instructed to follow-up with psychiatric service as an outpatient. Allergies: Coded Allergies: NO KNOWN ALLERGIES (07/06/15) Disposition Summary Disposition Principal Diagnosis: Alcohol detox Additional Diagnosis: -Pancytopenia Discharge Disposition: home or self care Discharge Instructions General Discharge Information Code Status: Full Code Patient's Diet: Regular as tolerated Patient's Activity: Normal as tolerated Follow-Up Instructions/Appts: 1.Please follow up with PCP within one week of discharge, and ask to address the pancytopenia 2.Please follow up with the psych serves as an outpatinet within one week. Medications at Discharge Discharge Medications: Continue taking these medications: Folic Acid (Folic Acid) 1 MG TABLET 1 Tablet ORAL DAILY Qty = 30 Comments: Last Taken: 06/27/16 Time: 8:30 AM Lisinopril (Lisinopril) 10 MG TABLET 1 Tablet ORAL DAILY Qty = 30 Comments: GIVEN 07/10/15 AT 0800 Levetiracetam (Keppra) 1,000 MG TABLET 1 Tablet ORAL TWICE DAILY Qty = 15 Comments: Last Taken: 06/27/16 Time: 830 AM: Thiamine (Vitamin B1) 100 MG TAB 100 Milligram ORAL DAILY Qty = 30 Comments: GIVEN 07/10/15 AT 0800 Magnesium Oxide (Magnesium Oxide) 400 MG TABLET 1 Tablet ORAL EVERY 24 HOURS Qty = 60 Comments: NOT GIVEN IN HOSPITAL Multiple Vitamin (Multivitamins) 1 EACH TABLET 1 Tablet ORAL DAILY Qty = 30 Comments: GIVEN 06/27/16 8:30AM Omeprazole (Omeprazole) 40 MG CAPSULE. 1 Capsule ORAL DAILY Qty = 30 Comments: NOT TAKEN IN HOSPITAL; Copies To: YOGI MCMAHON MD Omeprazole (Omeprazole) 40 MG CAPSULE. 1 Capsule ORAL DAILY Qty = 30 Comments: NOT TAKEN IN HOSPITAL; Copies To: YOGI MCMAHON MD
== END 2016-06-27 16:45 | DRG 775 ==
LOC: ENRESERVDT → ENRESERVTM → CANRESERV → ERH 13:28 → ERHI 17:43 → 2NA 17:43
PROVIDERS: Emergency Medicine; Internal Medicine; Student in an Organized Health Care Education/Training Program; ADMIT Internal Medicine
DX: F10.231 Alcohol dependence with withdrawal delirium (principal); N17.9 Acute kidney failure, unspecified; D61.818 Other pancytopenia; R56.9 Unspecified convulsions; M62.82 Rhabdomyolysis; D69.6 Thrombocytopenia, unspecified; Z87.820 Personal history of traumatic brain injury; Z86.718 Personal history of other venous thrombosis and embolism; Z86.711 Personal history of pulmonary embolism; I10 Essential (primary) hypertension; F17.200 Nicotine dependence, unspecified, uncomplicated; E86.0 Dehydration
CPT/HCPCS: 2NASP; 36415; 80307; 81003; 82436; 93005; 93010; 96374; 96375; 96376; 99232; 99291; G0480; J1630; J3490